=== PATIENT | male | born 1955 | race Caucasian/White ===

== ENCOUNTER 2019-07-10 14:32 | Inpatient (IN) | payer OTHER ==
[~2019-07-10] VITALS: Ht 190.5 cm; Wt 75.5 kg
[~2019-07-10 14:32] MED LIST: FENT25TP TOP; OXYC5 PO
[2019-07-10 15:28] LABS: BASOPHILS ABSOLUTE AUTO 0.08 K/mm3 (0.00-0.23); BASOPHILS PERCENT AUTO 1 % (0-2); EOSINOPHILS ABSOLUTE AUTO 0.68 K/mm3 (0.00-0.68); EOSINOPHILS PERCENT AUTO 9 % (0-6); Hematocrit 44.4 % (37.0-53.0); Hemoglobin 15.4 g/dL (13.5-17.5); IMMATURE GRAN ABSOLUTE AUTO 0.03 K/mm3 (0.00-0.10); IMMATURE GRAN PERCENT AUTO 0 % (0-1); LYMPHOCYTES ABSOLUTE AUTO 1.65 K/mm3 (0.84-5.20); LYMPHOCYTES PERCENT AUTO 21 % (21-46); MONOCYTES ABSOLUTE AUTO 0.46 K/mm3 (0.16-1.47); MONOCYTES PERCENT AUTO 6 % (4-13); Mean Corpuscular HGB 32.6 pg (26.0-34.0); Mean Corpuscular HGB Conc 34.7 g/dL (31.5-36.5); Mean Corpuscular Volume 94 fL (80-100); Mean Platelet Volume 10.3 fL (9.1-12.4); NEUTROPHILS ABSOLUTE AUTO 4.87 K/mm3 (1.96-9.15); NEUTROPHILS PERCENT AUTO 63 % (41-73); Platelet Count 208 K/mm3 (150-400); RDW Coefficient Variation 12.4 % (11.7-14.2); RDW Standard Deviation 42.7 fL (35.1-46.3); Red Blood Cell Count 4.73 M/mm3 (4.30-5.90); White Blood Cell Count 7.77 K/mm3 (4.00-11.30)
[2019-07-10 15:48] LABS: Alanine Aminotransfer (ALT/SGP 37 U/L (12-78); Albumin, Blood 3.8 g/dL (3.4-5.0); Albumin/Globulin Ratio 1.2 (0.8-1.8); Alk Phos 95 U/L (50-136); Anion Gap 9 mmol/L (6-16); Aspartate Aminotrans (AST/SGOT 23 U/L (12-37); Bilirubin, Total 0.9 mg/dL (0.1-1.0); Blood Urea Nitrogen 8 mg/dL (8-24); CO2, Blood 25 mmol/L (21-32); Calcium, Blood 9.2 mg/dL (8.5-10.1); Chloride, Blood 102 mmol/L (98-108); Creatinine, Blood 0.53 mg/dL (0.60-1.20); Globulin, Blood 3.2 g/dL (2.2-4.0); Glomerular Filtration Rate >60 (60-); Glucose, Blood 198 mg/dL (70-99); Potassium, Blood 3.8 mmol/L (3.5-5.5); Sodium, Blood 136 mmol/L (136-145); Troponin I 0.073 ng/mL (0.000-0.040)
[2019-07-10 17:00] LABS: International Normalized Ratio 0.96; Prothrombin Time Results 10.3 Sec (9.7-11.5)
[2019-07-10] MEDS ORDERED: MICROZIDE12.5 MG PO (17:28)
[2019-07-10] MEDS ORDERED: TAMS.4ER PO (17:28)
[2019-07-10] MEDS ORDERED: Cymbalta20 MG PO ×2 (17:28→19:32)
[2019-07-10 19:22] LABS: CHOL/HDL RATIO 4.9; Cholesterol 151 mg/dL (50-200); HDL Cholesterol 31 mg/dL (>39); LDL/HDL RATIO 3.4; Low Density Lipoprotein Chol 104 mg/dL (0-110); Triglycerides 78 mg/dL (30-160); Very Low Density Lipoprot Chol 15 mg/dL (6-32)
[2019-07-10] MEDS ORDERED: FLOMAX0.4 MG PO (19:31)
[2019-07-10] MEDS ORDERED: Prinivil10 MG PO (19:32)
[2019-07-10] MEDS ORDERED: METF500 PO (19:33)
[2019-07-10] MEDS ORDERED: Nortriptyline H10 MG PO (19:33)
[2019-07-11 00:12] LABS: CPK Creatine Kinase 214 U/L (39-308)
--- NOTE | 2019-07-11 06:32 | NUR ---
NO ACUTE CHANGES THOUGHOUT SHIFT. SEE [employer] FOR FULL ASSESMENT.
--- NOTE | 2019-07-11 08:10 | NUR ---
ASSUMPTION OF CARE RECEIVED REPORT FROM CARON CHUNG. PT RESTING COMFORTABLY IN BED. NO S/S OF DISTRESS. VS STABLE. PT DENIES ANY C/O CHEST PAIN/PRESSURE OR SOB. OPEN FOR ECHO TODAY. BED LOCKED & IN LOWEST POSTION, CALL ELIZALDE W/ IN REACH. WILL CONTINUE TO MONITOR.
[2019-07-11 08:48] LABS: Hematocrit 39.5 % (37.0-53.0); Hemoglobin 13.5 g/dL (13.5-17.5); Mean Corpuscular HGB 32.1 pg (26.0-34.0); Mean Corpuscular HGB Conc 34.2 g/dL (31.5-36.5); Mean Corpuscular Volume 94 fL (80-100); Mean Platelet Volume 10.9 fL (9.1-12.4); Platelet Count 210 K/mm3 (150-400); RDW Coefficient Variation 12.6 % (11.7-14.2); RDW Standard Deviation 43.5 fL (35.1-46.3); White Blood Cell Count 8.33 K/mm3 (4.00-11.30)
[2019-07-11 09:07] LABS: Anion Gap 7 mmol/L (6-16); Blood Urea Nitrogen 17 mg/dL (8-24); Bun/Creatinine Ratio 28.1 (12.0-20.0); CO2, Blood 26 mmol/L (21-32); Calcium, Blood 8.6 mg/dL (8.5-10.1); Chloride, Blood 104 mmol/L (98-108); Creatinine, Blood 0.61 mg/dL (0.60-1.20); Glomerular Filtration Rate >60 (60-); Glucose, Blood 184 mg/dL (70-99); Sodium, Blood 137 mmol/L (136-145)
[2019-07-11 09:10] LABS: Troponin I 0.388 ng/mL (0.000-0.040)
[2019-07-11 11:59] LABS: International Normalized Ratio 0.98; Prothrombin Time Results 10.5 Sec (9.7-11.5)
--- NOTE | 2019-07-11 12:40 | NUR ---
PT HAD ECHO COMPLETED, WHICH IS CONCERNING FOR THROMBUS. HEPARIN DRIP STARTED PER MD ORDER. PT'S WEIGHT 85KG, DRIP INFUSING @ 13UNITS/KG/HR. VERIFIED W/ SECOND RNAMERICA.
--- NOTE | 2019-07-11 17:03 | NUR ---
NOTIFIED BY LAB OF CRITICAL TROPONIN LEVEL 2.59 @ 3469. SPOKE W/ DR. BLOUNT VIA TELEPHONE @ 1703. TO ENTER ADDITIONAL TNI ORDERS. DR. BLOUNT STATES NO NEED TO CALL CARDIO W/ FUTURE TNI LEVELS. PLAN IS FOR ANGIOPLASTY TOMORROW.
--- NOTE | 2019-07-11 19:05 | NUR ---
SHIFT SUMMARY PT C/O CHEST PAIN 08/19 @ 1745; NOTED TO BE DIAPHORETIC & C/O SOME MILD SOB. DR. BLOUNT AT BEDSIDE; ORDERED STAT EKG & SUBLINGUAL NITRO. PT REPORTS 0/10 CHEST PAIN AFTER ADMINISTRATION OF NITRO X2. EKG DID SHOW CHANGES FROM PRIOR PER MD. DR. BLOUNT STATES THAT PLAN IS STILL FOR ANGIO TOMORROW, UNLESS PT DEVELOPS CHEST PAIN OR BECOMES UNSTABLE THROUGHOUT NIGHT. HEPARIN DRIP CONTINUES TO INFUSE @ 13UNITS/KG/HR. PT CURRENTLY RESTING IN BED IN NO DISTRESS. VS STABLE. PT DENIES ANY C/O CHEST PAIN OR SOB. REPORT GIVEN TO CARON SANDOVAL.
--- NOTE | 2019-07-11 20:09 | NUR ---
ASSUMED CARE APPROXIMATELY 1899; PT A&O; WATCHING TV; APPROXIMATELY 1944 C/O CHEST PAIN; PAIN 1 OF 10; HR ELEVATED TO 107; BP OF 112/83; NSR NOTED ON TELE; PAIN INCREASED TO 2 OF 10; C/O OF DIAPHORESIS; 2 NITRO GIVEN 5 MINUTES APART; MERCHANDISE DIRECTOR IN ROOM; PAIN RESOLVED; PT STATES IMPROVEMENT; BP AND HR CAME DOWN IN ACCORDANCE; 110/75 W/ HR OF 91; MADE NPO IN PREPARATION; CALL LIGHT IN REACH; BED IN LOWEST POSITION;
--- NOTE | 2019-07-12 00:47 | NUR ---
UPDATE PT A&O C/O JOINT PAIN AND CHEST PAIN; NITRO GIVEN X2; IMMEDIATE IMPROVEMENT NOTED AFTER 2ND; O2 SATS >93 ON RA; CALL LIGHT IN REACH; BED IN LOWEST POSITION; REPORT GIVEN TO CARON CHUNG
--- NOTE | 2019-07-12 00:49 | NUR ---
PATIENT C/O OF 2/10 CHEST PRESSURE, BP 132/92, HR >100. SL NTG GIVEN SBP DOWN TO 110-120, HR <100, PRESSURE DOWNN TO 1/10. SECOND NTG GIVEN AFTER 5 MINUTES WITH SBP 100 -110, HR IN 90'S PRESSURE RESOLVED. ALSO C/O 3/10 JOINT PAIN, MEDICATED WITH 25 MCG SUBLIMAZE IV. WILL CONTINUE TO MONITOR.
--- NOTE | 2019-07-12 04:55 | NUR ---
pain c/o NAUSEA AND SWEATING SBP 120, HR <100. NO CHEST PAIN, 2L O2 PLACED WITH SLIGHT RELIEF FOR NAUSEA, ZOFRAN 4 MG IV GIVEN RESOLVING NAUSEA. MAAME CONTINUE TO MONITOR UNTILL DR BLOUNT ARRIVES THIS AM.
[2019-07-12 05:24] LABS: BASOPHILS ABSOLUTE AUTO 0.09 K/mm3 (0.00-0.23); BASOPHILS PERCENT AUTO 1 % (0-2); EOSINOPHILS ABSOLUTE AUTO 0.94 K/mm3 (0.00-0.68); EOSINOPHILS PERCENT AUTO 9 % (0-6); Hematocrit 41.6 % (37.0-53.0); Hemoglobin 14.1 g/dL (13.5-17.5); IMMATURE GRAN ABSOLUTE AUTO 0.03 K/mm3 (0.00-0.10); IMMATURE GRAN PERCENT AUTO 0 % (0-1); LYMPHOCYTES ABSOLUTE AUTO 3.01 K/mm3 (0.84-5.20); LYMPHOCYTES PERCENT AUTO 30 % (21-46); MONOCYTES ABSOLUTE AUTO 0.56 K/mm3 (0.16-1.47); MONOCYTES PERCENT AUTO 6 % (4-13); Mean Corpuscular HGB 32.2 pg (26.0-34.0); Mean Corpuscular HGB Conc 33.9 g/dL (31.5-36.5); Mean Corpuscular Volume 95 fL (80-100); Mean Platelet Volume 10.8 fL (9.1-12.4); NEUTROPHILS ABSOLUTE AUTO 5.36 K/mm3 (1.96-9.15); NEUTROPHILS PERCENT AUTO 54 % (41-73); Platelet Count 221 K/mm3 (150-400); RDW Coefficient Variation 12.5 % (11.7-14.2); RDW Standard Deviation 43.7 fL (35.1-46.3); Red Blood Cell Count 4.38 M/mm3 (4.30-5.90); White Blood Cell Count 9.99 K/mm3 (4.00-11.30)
[2019-07-12 05:55] LABS: Anion Gap 9 mmol/L (6-16); Blood Urea Nitrogen 23 mg/dL (8-24); Bun/Creatinine Ratio 37.6 (12.0-20.0); CO2, Blood 23 mmol/L (21-32); Calcium, Blood 9.2 mg/dL (8.5-10.1); Chloride, Blood 102 mmol/L (98-108); Creatinine, Blood 0.61 mg/dL (0.60-1.20); Glomerular Filtration Rate >60 (60-); Glucose, Blood 201 mg/dL (70-99); Potassium, Blood 3.9 mmol/L (3.5-5.5); Sodium, Blood 134 mmol/L (136-145)
--- NOTE | 2019-07-12 13:02 | NUR ---
Spiritual care visit conducted. Patient is lying in bed and alert. Patient immediately tells me that he is going to have an angiogram today and then proceeds to tell me about his complicated medical history. Patient tells me his fears of being so high risk and how his family, friends and dio carry him through. We discuss patient's latter-day beliefs, his family history and his hopes. I listen empathically, reinforce helpful attitudes and practices and provide pastoral application counselor and prayer. Patient responds well and displays evidence of improved peace. I will continue to remain available to patient and family.
--- NOTE | 2019-07-12 13:25 | NUR ---
PT GONE FOR ANGIO PROCEDURE AT AUDIO NARRATOR AT THIS TIME, ACCOMPANIED BY [facility] AND DAUGHTER. PT DENIES ANY CHEST PAIN PRIOR TO TRANSFER. NO OTHER COMPLAINS.
--- NOTE | 2019-07-12 14:49 | NUR ---
Aditi Vázquez, a [employer] school of nursing director, was given permission by Jerzy Monte on 07/12/2019 to provide care for Jerzy Monte on 07/13/2019.
--- NOTE | 2019-07-12 14:50 | NUR ---
Patient gave student nurse permission to provide care on 07/13/19.
--- NOTE | 2019-07-12 19:50 | NUR ---
SHIFT SUMMARY: PT HAD ANGIO PROCEDURE DONE TODAY, ACCESS SITE ON RIGHT RADIAL AND IS WNL. PT TO CONTINUE HEPARIN DRIP, NO OCCLUSION FOUND WITH ANGIO, SOME CLOTS FOUND. HRR NSR ON 80'S NO CHEST PAIN FOR THE SHIFT. LUNGS CLEAR SATS ABOVE 90% ON 2L OF 02. BP SYSTOLIC ON THE 110'S AND 120'S. TR BAND IN PLACE ON RIGHT ARM WITH 1CC AIR LEFT. REPORT GIVEN TO ONCOMING SHIFT. TO CONTINUE TO MONITOR
[2019-07-13 05:43] LABS: BASOPHILS ABSOLUTE AUTO 0.09 K/mm3 (0.00-0.23); BASOPHILS PERCENT AUTO 1 % (0-2); EOSINOPHILS ABSOLUTE AUTO 0.97 K/mm3 (0.00-0.68); EOSINOPHILS PERCENT AUTO 11 % (0-6); Hematocrit 43.1 % (37.0-53.0); Hemoglobin 14.5 g/dL (13.5-17.5); IMMATURE GRAN ABSOLUTE AUTO 0.03 K/mm3 (0.00-0.10); IMMATURE GRAN PERCENT AUTO 0 % (0-1); LYMPHOCYTES ABSOLUTE AUTO 2.58 K/mm3 (0.84-5.20); LYMPHOCYTES PERCENT AUTO 29 % (21-46); MONOCYTES PERCENT AUTO 7 % (4-13); Mean Corpuscular HGB 32.7 pg (26.0-34.0); Mean Corpuscular HGB Conc 33.6 g/dL (31.5-36.5); Mean Corpuscular Volume 97 fL (80-100); Mean Platelet Volume 10.7 fL (9.1-12.4); NEUTROPHILS ABSOLUTE AUTO 4.72 K/mm3 (1.96-9.15); NEUTROPHILS PERCENT AUTO 53 % (41-73); Platelet Count 208 K/mm3 (150-400); RDW Coefficient Variation 12.7 % (11.7-14.2); RDW Standard Deviation 45.1 fL (35.1-46.3); Red Blood Cell Count 4.44 M/mm3 (4.30-5.90); White Blood Cell Count 8.99 K/mm3 (4.00-11.30)
[2019-07-13 05:59] LABS: Anion Gap 7 mmol/L (6-16); Blood Urea Nitrogen 29 mg/dL (8-24); Bun/Creatinine Ratio 37.4 (12.0-20.0); CO2, Blood 25 mmol/L (21-32); Calcium, Blood 8.7 mg/dL (8.5-10.1); Chloride, Blood 102 mmol/L (98-108); Creatinine, Blood 0.78 mg/dL (0.60-1.20); Glomerular Filtration Rate >60 (60-); Glucose, Blood 164 mg/dL (70-99); Potassium, Blood 4.1 mmol/L (3.5-5.5); Sodium, Blood 134 mmol/L (136-145)
--- NOTE | 2019-07-13 06:00 | NUR ---
SHIFT SUMAMRY. RECOVERY OF TR AND RT WRIST WNL ALL NOC W/ FREQ CHECKS POST AIR RELEASE = SEE SITE MANAGE REPORT. OCCLUSIVE DSG AT 2300 AND FREQ CHECK ALL NOC AND WNL ALL NOC. ARM BOARD AT ALL TIMES. REPORTS PER HX TRQANSIENT JOINT PAIN AND REQUESTS PAIN MED FOR BETTER SLEEP COMFORT. LT FOOT NUMB REPORTED THEN SUBSIDES . DENIES CP ALL NOC. SR ALL NOC. HEP GTT CONT. AWAKENED AT 0500 W/ WAVE OF NAUSEA AND VERY DIAPHORETIC. BP WNL AND NO RHYTHM CHANGE. ZOFRAQN GIVEN. REFUSED HS SNACK LAST NOC. NO CBG COVER. NO CHANGE IN RT WRIST. CIRC CHEC WNL. BBC NOTED REQUESTS 1L NC REPORTED IT MAKES HIM FEEL MORE AT EASE.
--- NOTE | 2019-07-13 16:51 | NUR ---
SHIFT SUMMARY: PT ALERT AND ORIENTED. PT CONTINUES ON HEPARIN DRIP TO START TONIGHT ONCE XARELTO IS STARTED. NO C/O CHEST PAIN FOR THE SHIFT, HRR NSR ON 90'S. LUNGS CLEAR WITH BASIALR CRACKLES BILAT. NO SOB/. PT SWITCHED TO MEDICAL STATUS WITH TELE ORDERED. PT STAYED IN BED MOST OF THE SHIFT, C/O WEAKNESS BUT MANAGED TO SIT UP AT THE SIDE OF THE BED MOST OF THE TIME. PT WAS ALSO C/O CONSTIPATION STOOL SOFTENER GIVEN FOLLOWED BY PRUNE JUICE, NO BM REPORTED YET. PT RESTING IN BED WITH CALL LIGHTS WITHIN REACH. WILL MONITOR. TO GIVE REPORT TO ONCOMING SHIFT.
[2019-07-14 04:06] LABS: BASOPHILS ABSOLUTE AUTO 0.09 K/mm3 (0.00-0.23); BASOPHILS PERCENT AUTO 1 % (0-2); EOSINOPHILS ABSOLUTE AUTO 0.81 K/mm3 (0.00-0.68); EOSINOPHILS PERCENT AUTO 11 % (0-6); Hematocrit 44.9 % (37.0-53.0); Hemoglobin 15.2 g/dL (13.5-17.5); IMMATURE GRAN ABSOLUTE AUTO 0.04 K/mm3 (0.00-0.10); IMMATURE GRAN PERCENT AUTO 1 % (0-1); LYMPHOCYTES ABSOLUTE AUTO 1.94 K/mm3 (0.84-5.20); LYMPHOCYTES PERCENT AUTO 26 % (21-46); MONOCYTES ABSOLUTE AUTO 0.59 K/mm3 (0.16-1.47); MONOCYTES PERCENT AUTO 8 % (4-13); Mean Corpuscular HGB 32.4 pg (26.0-34.0); Mean Corpuscular HGB Conc 33.9 g/dL (31.5-36.5); Mean Corpuscular Volume 96 fL (80-100); Mean Platelet Volume 10.6 fL (9.1-12.4); NEUTROPHILS ABSOLUTE AUTO 4.01 K/mm3 (1.96-9.15); NEUTROPHILS PERCENT AUTO 54 % (41-73); Platelet Count 212 K/mm3 (150-400); RDW Coefficient Variation 12.6 % (11.7-14.2); Red Blood Cell Count 4.69 M/mm3 (4.30-5.90); White Blood Cell Count 7.48 K/mm3 (4.00-11.30)
[2019-07-14 04:22] LABS: Anion Gap 5 mmol/L (6-16); Blood Urea Nitrogen 28 mg/dL (8-24); Bun/Creatinine Ratio 38.3 (12.0-20.0); CO2, Blood 30 mmol/L (21-32); Calcium, Blood 9.3 mg/dL (8.5-10.1); Chloride, Blood 100 mmol/L (98-108); Creatinine, Blood 0.73 mg/dL (0.60-1.20); Glomerular Filtration Rate >60 (60-); Glucose, Blood 176 mg/dL (70-99); Potassium, Blood 4.6 mmol/L (3.5-5.5); Sodium, Blood 135 mmol/L (136-145)
--- NOTE | 2019-07-14 06:00 | NUR ---
SHIFT SUMMARY. DENIES ACUTE PAIN REPORTS USUAL JOINT ACHES AND OCC SHARP PAIN . WEAKNESS W/ EXTREMITIES PER HX DUE TO DISORDER. USES URINAL. STOOD W/ NO ASSIST ONLY STAND BY, FOR SHOWER. AND DID NOT REQUIRE SHOWER CHAIR. REPORTS NO SOB W/ EXERTION.
--- NOTE | 2019-07-14 10:53 | NUR ---
ASSUMTION OF CARE. PT RESTING IN BED. A&Ox4; CALM AND COOPERATIVE WT CARE. PT RESTING IN BED. PT DENIES PAIN, CHEST PAIN/PRESSURE, SOB, NAUSEA AND DIZZINESS. LS DIM T/O CRACKLES TO BASES; PT RECEEIVING IV LASIX. VSS. NO OTHER ACUTE CHANGES NOTED. WILL CONTINUE TO MONITOR.
--- NOTE | 2019-07-14 18:22 | NUR ---
SHIFT SUMMARY PT REPORTS PAIN IN BILATERAL KNEE AND FEET; MEDICATED x1 WTIH FENTNYL WITH POSITIVE RESULTS. A&Ox4; CALM AND COOPERATIVE WITH CARE. 1 PERSON ASSIT. NO DISTRESS NOTED T/O SHIFT. VSS. NO OTHER ACUTE CHANGES NOTED. WILL CONTINUE TO MONITOR UNTIL REPORT GIVEN TO ONCOMING RN
[2019-07-15 04:18] LABS: Anion Gap 6 mmol/L (6-16); Blood Urea Nitrogen 33 mg/dL (8-24); Bun/Creatinine Ratio 40.1 (12.0-20.0); CO2, Blood 30 mmol/L (21-32); Calcium, Blood 8.9 mg/dL (8.5-10.1); Chloride, Blood 101 mmol/L (98-108); Creatinine, Blood 0.82 mg/dL (0.60-1.20); Glomerular Filtration Rate >60 (60-); Glucose, Blood 170 mg/dL (70-99); Potassium, Blood 4.2 mmol/L (3.5-5.5); Sodium, Blood 137 mmol/L (136-145)
--- NOTE | 2019-07-15 06:14 | NUR ---
NO ACUTE CHANGES THIS SHIFT, PERIODS OF APNEA NOTED DURINGHOURS OF SLEEP, NO DISTRESS NOTED.
--- NOTE | 2019-07-15 07:28 | NUR ---
Spoke with Dr. Collins regarding the plan of care for the pt this morning. States he has made the decision to be a DNR. The pt confirms this with me as well. Pt verbalized understanding of plan to remain in the hospital one more day for IV lasix. He has no complaints or voiced needs at this time.
--- NOTE | 2019-07-15 10:57 | NUR ---
Pt states that he does not need the Miralax as he was able to have a bowel movement this morning.
[2019-07-15 11:10] LABS: LYME IGG/IGM AB <0.91 ISR (0.00-0.90)
--- NOTE | 2019-07-15 12:34 | NUR ---
Mau is sitting up, eating his lunch while dangling on the side of the bed. He appears to be tolerating this very well. States was able to walk to the bathroom and had a BM today. Denies any needs/pain/discomfort at this time.
--- NOTE | 2019-07-15 17:53 | NUR ---
Telephone report give to Beronica Mcbride at this time. Anticipate transfer to [facility] soon.
--- NOTE | 2019-07-15 19:02 | NUR ---
pt arrived to floor from pcu and settled in to bed. oriented to room. cane within reach for ambulation. reports he raises the bed to get to standing position. report given to oncoming shift.
--- NOTE | 2019-07-16 04:21 | NUR ---
SHIFT SUMMARY ASSUMED CARE OF PT AT 1900. PT IS A/O X4, DENIES N/T IN EXTREMITIES AT THIS TIME. HEART SOUNDS REGULAR, TELE SHOWS SINUS AT 77, DENIES CP AT THIS TIME. LUNG SOUNDS CLEAR, DENIES SOB AT THIS TIME, PT IS ASSUMED TO HAVE SLEEP APNEA, WEARS 2L O2 AT NIGHT, SLEEP STUDY IS TO BE DONE OUT PATIENTLY. 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 PT IS INDEPENDENT IN ROOM. ANGIO SITE SOFT, NOT DISCOLORED AND PT STATES THERE IS NO PAIN. PT SLEPT T/O THE NIGHT WITHOUT ANY EVENTS. PT IS PLANNED TO GO HOME TO HIS HOUSE TODAY. CALL LIGHT IN REACH, BED IN LOWEST POSITION, WILL CONTINUE TO MONITOR UNTIL DAYSHIFT NURSE ARRIVES.
[2019-07-16 04:34] LABS: Anion Gap 7 mmol/L (6-16); Blood Urea Nitrogen 34 mg/dL (8-24); CO2, Blood 24 mmol/L (21-32); Calcium, Blood 8.9 mg/dL (8.5-10.1); Chloride, Blood 104 mmol/L (98-108); Creatinine, Blood 0.71 mg/dL (0.60-1.20); Glomerular Filtration Rate >60 (60-); Glucose, Blood 198 mg/dL (70-99); Potassium, Blood 4.3 mmol/L (3.5-5.5); Sodium, Blood 135 mmol/L (136-145)
--- NOTE | 2019-07-16 07:54 | NUR ---
REPORT RECEIVED FROM DAY STAFF, a+o, dc orders expected, chronic desease wasting, cbg checked 203, ls clear, weak limbs, pulse strong, rom full, perrl, call light in reach, bed low, saline locked, pain treated
[2019-07-16] MEDS ORDERED: ATOR20 PO (12:08)
[2019-07-16] MEDS ORDERED: Cymbalta20 MG PO (12:09)
[2019-07-16] MEDS ORDERED: Lasix20 MG PO (12:10)
[2019-07-16] MEDS ORDERED: METO50ER PO (12:11)
[2019-07-16] MEDS ORDERED: XARELTO20 MG PO (12:12)
[2019-07-16] MEDS ORDERED: ENTRESTO 24 MG1 EACH PO (12:13)
[2019-07-16] MEDS ORDERED: SPIR25 PO (12:15)
--- NOTE | 2019-07-16 13:09 | NUR ---
REVIEWED MEDICATION, DISCHARGE ORDERS, AND APPOINTMENTS WITH PT, HE INDICATED UNDERSTANDING OF INFORMATION CONVEYED, AGREED TO READ THE PRINTED MATERIAL R/MEDICATIONS AND DIAGNOSIS, DROVE PT IN WC DOWN TO CAR, IN GOOD SPIRITS, STOOD WITH ASSIST, USED CANE, TOOK BELONGINGS WITH HIM, REMOVED IV.
[2019-07-16 20:06] LABS: IGG P18 AB. Absent (.); IGG P23 AB. Absent (.); IGG P28 AB. Absent (.); IGG P30 AB. Absent (.); IGG P39 AB. Absent (.); IGG P41 AB. Absent (.); IGG P45 AB. Absent (.); IGG P58 AB. Absent (.); IGG P66 AB. Absent (.); IGG P93 AB. Absent (.); IGM P23 AB. Absent (.); IGM P39 AB. Absent (.); IGM P41 AB. Absent (.); LYME IGG WB INTERP. Negative (.); LYME IGM WB INTERP. Negative (.)
== END 2019-07-16 13:07 | disposition home or self-care (01) | DRG 280 ==
LOC: ER 14:32 → PCU 18:37 → MEDS 07-15 18:25
PROVIDERS: Emergency Medicine; Internal Medicine; Internal Medicine Cardiovascular Disease; Physician Assistant; ADMIT Internal Medicine
PROC: B211YZZ Fluoroscopy of Multiple Coronary Arteries using Other Contrast (ICD-10-PCS; principal; 2019-07-12)
DX: I21.4 Non-ST elevation (NSTEMI) myocardial infarction (principal); I50.21 Acute systolic (congestive) heart failure; A69.20 Lyme disease, unspecified; N40.0 Benign prostatic hyperplasia without lower urinary tract symptoms; F32.9 Major depressive disorder, single episode, unspecified; E11.9 Type 2 diabetes mellitus without complications; I16.0 Hypertensive urgency; I11.0 Hypertensive heart disease with heart failure; E78.5 Hyperlipidemia, unspecified; G47.33 Obstructive sleep apnea (adult) (pediatric); I25.10 Atherosclerotic heart disease of native coronary artery without angina pectoris; I27.20 Pulmonary hypertension, unspecified; Z66 Do not resuscitate; F17.210 Nicotine dependence, cigarettes, uncomplicated; Z79.84 Long term (current) use of oral hypoglycemic drugs; Z91.14 Patient's other noncompliance with medication regimen
CPT/HCPCS: 36415; 71046; 80048; 80053; 80061; 82550; 82947; 83036; 83880; 84145; 84443; 84484; 85025; 85027; 85610; 85651; 85730; 86140; 86617; 86618; 87040; 90686; 93005; 93010; 93454; 94640; 94760; 96365; 96366; 99152; 99153; 99285-25; A9270; A9270-GY; C1769; C1894; C8929; G0008; J1644; J1650; J1940; J2250; J2405; J3010; J7030; Q9957; Q9967

== ENCOUNTER 2020-05-15 08:42 | Inpatient (IN) | payer OTHER ==
[~2020-05-15] VITALS: Ht 190.5 cm; Wt 100.8 kg
[~2020-05-15 08:42] MED LIST changes: +ALLERCLEAR10 MG PO; +ATOR20 PO; +CLOP75 PO; +Cymbalta20 MG PO; +ENTRESTO 24 MG1 EACH PO; +FAMO20 PO; +FLOMAX0.4 MG PO; +HYDR1TAB94 PO; +Lasix20 MG PO; +METF500 PO; +METO50ER PO; +MICROZIDE12.5 MG PO; +NORTRIPTYLINE H50 MG PO; +Nortriptyline H10 MG PO; +Prinivil10 MG PO; +SPIR25 PO; +TAMS.4ER PO; +TIOT18 INH; +XARELTO2.5 M1 PO; +XARELTO20 MG PO
[2020-05-15 09:41] LABS: BASOPHILS PERCENT AUTO 1 % (0-2); EOSINOPHILS ABSOLUTE AUTO 0.61 K/mm3 (0.00-0.68); EOSINOPHILS PERCENT AUTO 5 % (0-6); Hematocrit 43.6 % (37.0-53.0); Hemoglobin 14.7 g/dL (13.5-17.5); IMMATURE GRAN ABSOLUTE AUTO 0.05 K/mm3 (0.00-0.10); IMMATURE GRAN PERCENT AUTO 0 % (0-1); LYMPHOCYTES PERCENT AUTO 17 % (21-46); MONOCYTES ABSOLUTE AUTO 0.68 K/mm3 (0.16-1.47); MONOCYTES PERCENT AUTO 6 % (4-13); Mean Corpuscular HGB 30.6 pg (26.0-34.0); Mean Corpuscular HGB Conc 33.7 g/dL (31.5-36.5); Mean Corpuscular Volume 91 fL (80-100); Mean Platelet Volume 10.3 fL (9.1-12.4); NEUTROPHILS ABSOLUTE AUTO 8.87 K/mm3 (1.96-9.15); NEUTROPHILS PERCENT AUTO 72 % (41-73); Platelet Count 282 K/mm3 (150-400); RDW Coefficient Variation 12.1 % (11.7-14.2); RDW Standard Deviation 40.3 fL (35.1-46.3); White Blood Cell Count 12.41 K/mm3 (4.00-11.30)
[2020-05-15 10:09] LABS: Alanine Aminotransfer (ALT/SGP 28 U/L (12-78); Albumin, Blood 3.5 g/dL (3.4-5.0); Albumin/Globulin Ratio 1.1 (0.8-1.8); Alk Phos 108 U/L (50-136); Anion Gap 9 mmol/L (6-16); Aspartate Aminotrans (AST/SGOT 70 U/L (12-37); Bilirubin, Total 0.9 mg/dL (0.1-1.0); Blood Urea Nitrogen 12 mg/dL (8-24); Bun/Creatinine Ratio 25.8 (12.0-20.0); CO2, Blood 22 mmol/L (21-32); Chloride, Blood 106 mmol/L (98-108); Creatinine, Blood 0.47 mg/dL (0.60-1.20); Globulin, Blood 3.3 g/dL (2.2-4.0); Glomerular Filtration Rate >60 (60-); Glucose, Blood 324 mg/dL (70-99); Potassium, Blood 3.6 mmol/L (3.5-5.5); Sodium, Blood 137 mmol/L (136-145); Total Protein, Blood 6.8 g/dL (6.4-8.2)
[2020-05-15 10:49] LABS: Influenza A, PCR Negative (NEGATIVE); Influenza B, PCR Negative (NEGATIVE); Resp Syncytial Virus, PCR Negative (NEGATIVE); SARS-Cov-2 (COVID-19) PCR, MMC Negative (NEGATIVE)
[2020-05-15 11:12] LABS: International Normalized Ratio 0.97; Prothrombin Time Results 10.4 Sec (9.7-11.5)
[2020-05-15 13:05] LABS: CHOL/HDL RATIO 4.8; Cholesterol 162 mg/dL (50-200); HDL Cholesterol 34 mg/dL (>39); LDL/HDL RATIO 3.2; Low Density Lipoprotein Chol 110 mg/dL (0-110); Triglycerides 89 mg/dL (30-160); Very Low Density Lipoprot Chol 17 mg/dL (6-32)
--- NOTE | 2020-05-15 14:46 | NUR ---
pt for care [facility] STUDENT NURSE RECIEVED PERMISSION TO PROVIDE CARE
--- NOTE | 2020-05-15 17:30 | NUR ---
PT ARRIVED FROM HEART CENTER BACK TO PCU 15. TR BAND IN PLACE TO RIGHT RADIAL, GAUZE DRESSING WITH MARKED BLOODY DRAINAGE NOTED TO LEFT AC FROM RIGHT HEART CATH. NO CHANGES TO DRESSING NOTED. VITALS ARE STABLE. PT CONTINUES TO REPORT 3/10 CHEST PAIN/PRESSURE. CALLED DR DAVENPORT AND CLARIFIED WHEN TO START HEPARIN GTT. HEPARIN GTT TO START AFTER TR BAND IS REMOVED.
--- NOTE | 2020-05-15 18:45 | NUR ---
SHIFT SUMMARY PT ADMITTED THIS AFTERNOON FROM ER TO PCU 15. PT WENT TO HEART CENTER FOR RIGHT AND LEFT HEART CATH. TR BAND IN PLACE W/ 11ML AIR AND DEFLATION TO START AT 1900. RIGHT HEART CATH DRESSING TO RIGHT AC HAS OLD DRAINAGE, NO CHANGES AND IS INTACT. VITALS HAVE REMAINED STABLE. PT CONTINUES TO REPORT "LOW 4" FOR CHEST PAIN/PRESSURE AND OCCASSIONAL SHORT EPISODES OF DYSPNEA. TELEMETERY SHOWS PT TO BE IN SINUS TACH. SHIFT HANDOFF AND SITE VERIFICATION DONE WITH CARON DELAROSA.
--- NOTE | 2020-05-15 19:15 | NUR ---
REMOVED 2ML FROM TR BAND - NO COMPLICATIONS/SIGNS OF BLEEDING. VSS.
--- NOTE | 2020-05-15 20:00 | NUR ---
REMOVED 2ML FROM TR BAND - WITHOUT COMPLICATION. NO SIGNS OF BLEEDING/SWELLING. VSS. PT DID C/O MINOR CHEST PAIN - MEDICATED WITH MORPHINE - WILL CONTINUE TO MONITOR.
--- NOTE | 2020-05-15 20:25 | NUR ---
REMOVED 2ML FROM TR BAND - NO COMPLICATIONS. WIHTOUT S/S OF BLEEDING/SWELLING/PAIN. WILL CONTINUE TO MONITOR.
--- NOTE | 2020-05-15 20:57 | NUR ---
2ml removed from tr band - no signs of bleeding or swelling. vss.
--- NOTE | 2020-05-15 21:41 | NUR ---
3ml removed from tr band - completely deflated. no s/s of bleeding/swelling. vss. starting hep gtt per md order.
[2020-05-16 04:25] LABS: BASOPHILS ABSOLUTE AUTO 0.09 K/mm3 (0.00-0.23); BASOPHILS PERCENT AUTO 1 % (0-2); EOSINOPHILS ABSOLUTE AUTO 1.03 K/mm3 (0.00-0.68); EOSINOPHILS PERCENT AUTO 9 % (0-6); Hematocrit 37.8 % (37.0-53.0); Hemoglobin 12.9 g/dL (13.5-17.5); IMMATURE GRAN ABSOLUTE AUTO 0.04 K/mm3 (0.00-0.10); IMMATURE GRAN PERCENT AUTO 0 % (0-1); LYMPHOCYTES ABSOLUTE AUTO 2.72 K/mm3 (0.84-5.20); LYMPHOCYTES PERCENT AUTO 23 % (21-46); MONOCYTES ABSOLUTE AUTO 0.75 K/mm3 (0.16-1.47); MONOCYTES PERCENT AUTO 6 % (4-13); Mean Corpuscular HGB 31.2 pg (26.0-34.0); Mean Corpuscular HGB Conc 34.1 g/dL (31.5-36.5); Mean Corpuscular Volume 92 fL (80-100); Mean Platelet Volume 10.2 fL (9.1-12.4); NEUTROPHILS ABSOLUTE AUTO 7.19 K/mm3 (1.96-9.15); NEUTROPHILS PERCENT AUTO 61 % (41-73); Platelet Count 227 K/mm3 (150-400); RDW Coefficient Variation 12.5 % (11.7-14.2); RDW Standard Deviation 41.2 fL (35.1-46.3); Red Blood Cell Count 4.13 M/mm3 (4.30-5.90); White Blood Cell Count 11.82 K/mm3 (4.00-11.30)
[2020-05-16 04:34] LABS: Alanine Aminotransfer (ALT/SGP 32 U/L (12-78); Albumin, Blood 3.1 g/dL (3.4-5.0); Albumin/Globulin Ratio 1.1 (0.8-1.8); Alk Phos 89 U/L (50-136); Anion Gap 6 mmol/L (6-16); Aspartate Aminotrans (AST/SGOT 170 U/L (12-37); Bilirubin, Total 0.6 mg/dL (0.1-1.0); Blood Urea Nitrogen 17 mg/dL (8-24); Bun/Creatinine Ratio 34.1 (12.0-20.0); CO2, Blood 23 mmol/L (21-32); Calcium, Blood 8.5 mg/dL (8.5-10.1); Chloride, Blood 107 mmol/L (98-108); Globulin, Blood 2.9 g/dL (2.2-4.0); Glomerular Filtration Rate >60 (60-); Glucose, Blood 230 mg/dL (70-99); Magnesium, Blood 1.9 mg/dL (1.6-2.4); Potassium, Blood 4.1 mmol/L (3.5-5.5); Sodium, Blood 136 mmol/L (136-145)
--- NOTE | 2020-05-16 06:22 | NUR ---
SHIFT SUMMARY PT RESTED WELL THROUGH NIGHT. ALERT AND ORIENTED - ABLE TO MAKE NEEDS KNOWN. TELE SINUS TACHY. SATS >90% ON ROOM AIR. ATTEMPTED TO WEAR CPAP AT NIGHT - PT DID NOT LIKE WEARING MASK. VOIDING TO URINAL. NO BM. TR BAND OFF - NO COMPLICATIONS. HEP GTT RUNNING AND INCREASED FOR RECENT SUBTHERAPEUTIC PT. MELATONIN GIVEN TO HELP PT GET RESTFUL SLEEP. VSS. CALL LIGHT WITHIN REACH, BED IN LOWEST POSITION. WILL CONTINUE TO MONITOR.
--- NOTE | 2020-05-16 12:47 | NUR ---
Spiritual care visit conducted. Patient tells me about his medical issues and the plan of care. 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 I normalize patient's struggles, explore sources of meaning and value and provide therapeutic listening, pastoral genetic counsellor and prayer. Patient responds well and shows sign of an elevated mood. I will continue to work with patient on the emotional/spiritual/relational aspects of his inner health.
--- NOTE | 2020-05-16 16:28 | NUR ---
REASSESSMENT PT IN BED RESTING, REPORTED THAT HE DIDN'T SLEEP WELL LAST NOC. DENIES CHEST PAIN THIS AFTERNOON. RIGHT RADIAL SITE C/D/I, NO HEMATOMA. TELEMETERY CONTINUES AT SINUS TACH. NO CHANGES TO HEPARIN GTT, CONTINUES PER PHARMACY DOSING.
--- NOTE | 2020-05-16 17:58 | NUR ---
SHIFT SUMMARY PT IS ALERT AND ORIENTEDx4. THIS AFTERNOON PT REPORTS THAT HE IS CHESTPAIN FREE. TELEMETERY SHOWS PT TO BE IN SINUS TACH WITH RATES 100'S-110'S. RIGHT RADIAL SITE C/D/I, NO HEMATOMA NOTED. HEPARIN GTT CONTINUES TO INFUSE PER PHARMACY DOSING. VITALS HAVE REMAINED STABLE.
[2020-05-17 09:03] LABS: BASOPHILS ABSOLUTE AUTO 0.06 K/mm3 (0.00-0.23); BASOPHILS PERCENT AUTO 1 % (0-2); EOSINOPHILS ABSOLUTE AUTO 1.17 K/mm3 (0.00-0.68); EOSINOPHILS PERCENT AUTO 18 % (0-6); Hematocrit 35.3 % (37.0-53.0); IMMATURE GRAN ABSOLUTE AUTO 0.02 K/mm3 (0.00-0.10); IMMATURE GRAN PERCENT AUTO 0 % (0-1); LYMPHOCYTES ABSOLUTE AUTO 1.38 K/mm3 (0.84-5.20); LYMPHOCYTES PERCENT AUTO 21 % (21-46); MONOCYTES ABSOLUTE AUTO 0.44 K/mm3 (0.16-1.47); MONOCYTES PERCENT AUTO 7 % (4-13); Mean Corpuscular HGB 31.1 pg (26.0-34.0); Mean Corpuscular Volume 92 fL (80-100); Mean Platelet Volume 10.2 fL (9.1-12.4); NEUTROPHILS ABSOLUTE AUTO 3.48 K/mm3 (1.96-9.15); NEUTROPHILS PERCENT AUTO 53 % (41-73); Platelet Count 181 K/mm3 (150-400); RDW Coefficient Variation 12.5 % (11.7-14.2); RDW Standard Deviation 41.6 fL (35.1-46.3); Red Blood Cell Count 3.86 M/mm3 (4.30-5.90); White Blood Cell Count 6.55 K/mm3 (4.00-11.30)
[2020-05-17 09:18] LABS: Anion Gap 7 mmol/L (6-16); Blood Urea Nitrogen 17 mg/dL (8-24); Bun/Creatinine Ratio 35.3 (12.0-20.0); CO2, Blood 25 mmol/L (21-32); Calcium, Blood 8.1 mg/dL (8.5-10.1); Chloride, Blood 103 mmol/L (98-108); Creatinine, Blood 0.48 mg/dL (0.60-1.20); Glomerular Filtration Rate >60 (60-); Glucose, Blood 286 mg/dL (70-99); Potassium, Blood 3.6 mmol/L (3.5-5.5); Sodium, Blood 135 mmol/L (136-145)
--- NOTE | 2020-05-17 16:43 | NUR ---
PT SUMMARY: NO ACUTE CHANGE FOR THE SHIFT. PT REMAINED ALERT AND ORIENTED. VITALS HRR SR/ST 90-120'S, NO REPORTED VTACH EPISODES, DENIES CHEST PAIN, BP SYSTOLIC 110'S, SATS ABOVE 94% ON RA, AFEBRILE. PT WORKED WITH THERAPY TODAY WAS ABLE TO AMBULATE WITH WALKER AND GAIT BELT IN THE ROOM. PT REMAINS ON HEPARIN GTT AT 17U/KG/HR. PT FOR POSSIBLE DISCHARGE ON 05/18 OR 05/19 AWAITING FOR ZOLL VEST TO GET DELIVERED. NO OTHER ISSUES ENCOUNTERED FOR THE SHIFT, PT STAYED IN BED MOST OF THE SHIFT, USES URINAL FOR VOIDING. CALLS APPROPRIATELY. CALL LIGHTS IN REACH. WILL MONITOR
[2020-05-18 04:08] LABS: BASOPHILS ABSOLUTE AUTO 0.05 K/mm3 (0.00-0.23); BASOPHILS PERCENT AUTO 1 % (0-2); EOSINOPHILS ABSOLUTE AUTO 1.18 K/mm3 (0.00-0.68); EOSINOPHILS PERCENT AUTO 16 % (0-6); Hemoglobin 12.5 g/dL (13.5-17.5); IMMATURE GRAN ABSOLUTE AUTO 0.04 K/mm3 (0.00-0.10); IMMATURE GRAN PERCENT AUTO 1 % (0-1); LYMPHOCYTES ABSOLUTE AUTO 1.99 K/mm3 (0.84-5.20); LYMPHOCYTES PERCENT AUTO 26 % (21-46); MONOCYTES PERCENT AUTO 8 % (4-13); Mean Corpuscular HGB 31.6 pg (26.0-34.0); Mean Corpuscular HGB Conc 34.7 g/dL (31.5-36.5); Mean Corpuscular Volume 91 fL (80-100); NEUTROPHILS PERCENT AUTO 49 % (41-73); Platelet Count 195 K/mm3 (150-400); RDW Coefficient Variation 12.4 % (11.7-14.2); RDW Standard Deviation 40.7 fL (35.1-46.3); Red Blood Cell Count 3.96 M/mm3 (4.30-5.90); White Blood Cell Count 7.56 K/mm3 (4.00-11.30)
[2020-05-18 04:23] LABS: Anion Gap 7 mmol/L (6-16); Blood Urea Nitrogen 19 mg/dL (8-24); Bun/Creatinine Ratio 31.5 (12.0-20.0); CO2, Blood 26 mmol/L (21-32); Calcium, Blood 8.4 mg/dL (8.5-10.1); Chloride, Blood 104 mmol/L (98-108); Glomerular Filtration Rate >60 (60-); Glucose, Blood 222 mg/dL (70-99); Potassium, Blood 3.8 mmol/L (3.5-5.5); Sodium, Blood 137 mmol/L (136-145)
--- NOTE | 2020-05-18 05:38 | NUR ---
SHIFT SUMMARY NO ACUTE CHANGES THIS SHIFT. PT A&OX4. SP02>92% ON RA. PT WORE CPAP WHILE SLEEPING. TELEMETRY READ SR-ST, HR 90'S-120'S. PT DENIES CP/PRESSURE. HEPARIN INFUSING PER EMAR. PT SLEPT MOST OF NIGHT. CALL LIGHT IN REACH. WILL GIVE REPORT AT END OF SHIFT TO ONCOMING NURSE.
--- NOTE | 2020-05-18 08:06 | NUR ---
Pt gave permission for RN student Olivia Garibay to provide care on 05/18/2020.
--- NOTE | 2020-05-18 08:35 | NUR ---
Pt is lying in bed and is cooperative but at times irritable, pt states "I had a rought night with no sleep". Upon entering the room pts bed in raised, he states "it helps me sit up". Pt asks to keep bed in raised postion. BP has been in 80's, notified and some medications held. Slight edema in left lower extremity. Tingling in left lower foot.
--- NOTE | 2020-05-18 13:30 | NUR ---
PT HAS BEEN CARED FOR BY STUDENT NURSE TODAY, AGREE WITH ASSESSMENT, PT DENIES ANY COMPLAINTS, HAS BED UP IN AIR SO HE CAN STAND EASIER, ADVISED AGAINST THIS, BUT INSISTANT IT REMAIN THERE. HE WAS ABLE TO SLEEP THIS AM, AND STATES HE FEELS BETTER, CALL LIGHT IN REACH.
--- NOTE | 2020-05-18 17:45 | NUR ---
PT SITTING UP ON THE SIDE OF THE BED, WORKED WITH THERAPY TODAY, IN BETTER SPIRITS THAN THIS AM. NO ACUT CHANGES THIS SHIFT. CALL LIGHT IN REACH.
--- NOTE | 2020-05-19 06:50 | NUR ---
SHIFT SUMMARY PT A&OX4. SP02>92% ON RA. TELEMETRY READ SR-ST, HR 90'S-120'S. SOFT BP. PT DENIES CP/PRESSURE BUT STATED HE FELT SOME PALPATIONS DURING THE NIGHT. DESCRIBED THEM "FLUTTERS" AND STATED IT MADE HIM SOB MOMENTARILY. TELEMETRY SHOWED NO CHANGES DURING THIS EVENT. PT USED URINAL AT BEDSIDE. PT SLEPT MOST OF NIGHT. CALL LIGHT IN REACH. WILL GIVE REPORT TO ONCOMING NURSE.
--- NOTE | 2020-05-19 08:00 | NUR ---
PT LAYING IN BED AWAKE A/OX3, IN BETTER MOOD THAN YESTERDAY. LUNGS CLEAR HRR, NO EDEMA NOTED, PPP+1, CAP REFILL< 3SEC, VS STABLE, AFEBRILE, IV SITE TO LFA CLEAR AND PATENT, BTX4, ABD FLAT SOFT NONTENDER, VOIDS WITHOUT DIFF, SKIN C/W/D, MAEW, DUKE, CALL LIGHT IN REACH.
[2020-05-19 09:10] LABS: BASOPHILS ABSOLUTE AUTO 0.05 K/mm3 (0.00-0.23); BASOPHILS PERCENT AUTO 1 % (0-2); EOSINOPHILS ABSOLUTE AUTO 1.12 K/mm3 (0.00-0.68); EOSINOPHILS PERCENT AUTO 18 % (0-6); Hematocrit 36.6 % (37.0-53.0); Hemoglobin 12.3 g/dL (13.5-17.5); IMMATURE GRAN ABSOLUTE AUTO 0.03 K/mm3 (0.00-0.10); IMMATURE GRAN PERCENT AUTO 1 % (0-1); LYMPHOCYTES PERCENT AUTO 19 % (21-46); MONOCYTES PERCENT AUTO 8 % (4-13); Mean Corpuscular HGB 31.5 pg (26.0-34.0); Mean Corpuscular HGB Conc 33.6 g/dL (31.5-36.5); Mean Corpuscular Volume 94 fL (80-100); Mean Platelet Volume 10.1 fL (9.1-12.4); NEUTROPHILS ABSOLUTE AUTO 3.28 K/mm3 (1.96-9.15); NEUTROPHILS PERCENT AUTO 53 % (41-73); Platelet Count 198 K/mm3 (150-400); RDW Coefficient Variation 12.6 % (11.7-14.2); RDW Standard Deviation 43.2 fL (35.1-46.3); Red Blood Cell Count 3.91 M/mm3 (4.30-5.90); White Blood Cell Count 6.18 K/mm3 (4.00-11.30)
[2020-05-19 09:36] LABS: Anion Gap 7 mmol/L (6-16); Blood Urea Nitrogen 18 mg/dL (8-24); Bun/Creatinine Ratio 35.9 (12.0-20.0); CO2, Blood 23 mmol/L (21-32); Calcium, Blood 8.7 mg/dL (8.5-10.1); Chloride, Blood 107 mmol/L (98-108); Glomerular Filtration Rate >60 (60-); Glucose, Blood 274 mg/dL (70-99); Potassium, Blood 4.4 mmol/L (3.5-5.5); Sodium, Blood 137 mmol/L (136-145)
[2020-05-19] MEDS ORDERED: TORSE20 PO (12:00)
[2020-05-19] MEDS ORDERED: Imdur60 MG PO (12:03)
[2020-05-19] MEDS ORDERED: MIRALAX17 GM PO (12:05)
[2020-05-19] MEDS ORDERED: LOSA50 PO (12:05)
[2020-05-19] MEDS ORDERED: XARELTO20 MG PO (12:07)
--- NOTE | 2020-05-19 18:14 | NUR ---
PT HAS BEEN DISCHARGED TO HOME, HE WAS FITTED FOR HIS LIFE VEST, WENT OVER DISCHARGE INSTRUCTION WITH HIM, HE VERBALIZED UNDERSTANDING, NEW SCRIPTS WERE CALLED IN, HE HAS A HARD SCRIPT FOR A FRONT WHEELED WALKER, THIS WAS GIVEN TO HIM, IV REMOVED INTACT, PT STATES HE HAS HIS CAR HERE, AND WILL BE DRIVING HIMSELF HOME, HE WAS ADVISED AGAINST THIS, HE IS INSISTANT, STATES IF HE CAN'T DRIVE WITH IT HE WONT WEAR IT, DR. TOLEDO WAS CALLED, HE SAID WE CAN'T STOP HIM. CHARGE NURSE ALSO SPOKE TO HIM. GETTING DRESSED AT THIS TIME, WILL CALL WHEN READY FOR A WHEELCHAIR RIDE OUT. CALL LIGHT IN REACH.
--- NOTE | 2020-05-19 18:44 | NUR ---
Pt states that he planned to drive himself home. States "I have to drive myself, I don't have anyone who can help me." Pt states that if he is not allowed to drive himself with the life vest on he will just take it off. Educated Pt about the risks of v-tach and non-life sustaining rhythms and the roll of the life vest. Informed him that taking it off does not make driving safer. Informed him that he should not drive until he is cleared by cardiology. Pt states he plans to drive anyway because "I don't have the resources not to drive". Encouraged patient to wear the life vest as ordered and to hook puller if he starts to have any symptoms of heart palpitations, dizziness, lightheadedness, sob or chest pain. Pt verblaized understanding and stated "of course, I don't want to hurt anyone!". Pt got dressed and left via w/c with PINMAKER. Stable at time of discharge.
--- NOTE | 2020-05-19 18:45 | NUR ---
pt left via wheelchair with bible worker in attendence.
== END 2020-05-19 18:38 | disposition home or self-care (01) | DRG 281 ==
LOC: ER 08:42 → PCU 13:31
PROVIDERS: Emergency Medicine; Family Medicine; Nurse Practitioner Acute Care; ADMIT Internal Medicine
PROC: 4A023N8 Measurement of Cardiac Sampling and Pressure, Bilateral, Percutaneous Approach (ICD-10-PCS; principal; 2020-05-15)
PROC: B2111ZZ Fluoroscopy of Multiple Coronary Arteries using Low Osmolar Contrast (ICD-10-PCS; 2020-05-15)
DX: I21.4 Non-ST elevation (NSTEMI) myocardial infarction (principal); I51.81 Takotsubo syndrome; I42.0 Dilated cardiomyopathy; I50.22 Chronic systolic (congestive) heart failure; I47.2 Ventricular tachycardia; H35.30 Unspecified macular degeneration; Z79.84 Long term (current) use of oral hypoglycemic drugs; F17.210 Nicotine dependence, cigarettes, uncomplicated; I25.10 Atherosclerotic heart disease of native coronary artery without angina pectoris; G47.33 Obstructive sleep apnea (adult) (pediatric); E78.5 Hyperlipidemia, unspecified; G89.4 Chronic pain syndrome; I11.0 Hypertensive heart disease with heart failure; E11.51 Type 2 diabetes mellitus with diabetic peripheral angiopathy without gangrene; E87.5 Hyperkalemia; N40.0 Benign prostatic hyperplasia without lower urinary tract symptoms
CPT/HCPCS: 0241U; 36415; 71045; 71260; 80048; 80053; 80061; 82947; 83036; 83735; 84484; 85025; 85379; 85610; 85730; 86140; 86850; 86900; 86901; 93005; 93010; 93460; 94660; 94762; 96375; 96376; 97110; 97116; 97161; 97166; 97530; 97535; 99152; 99153; 99285-25; A9270; C1769; C1894; C8929; G0008; J1644; J2250; J2270; J3010; J3480; J7030; J7040; J7050; Q2038; Q9957; Q9967

== ENCOUNTER 2020-08-08 09:39 | Inpatient (IN) | payer OTHER, MEDICARE ==
[~2020-08-08] VITALS: Ht 190.5 cm; Wt 96.2 kg
[~2020-08-08 09:39] MED LIST changes: +Imdur60 MG PO; +LOSA50 PO; +MIRALAX17 GM PO; +TORSE20 PO
[2020-08-08 10:23] LABS: BASOPHILS ABSOLUTE AUTO 0.06 K/mm3 (0.00-0.23); BASOPHILS PERCENT AUTO 1 % (0-2); EOSINOPHILS ABSOLUTE AUTO 0.69 K/mm3 (0.00-0.68); EOSINOPHILS PERCENT AUTO 9 % (0-6); IMMATURE GRAN ABSOLUTE AUTO 0.04 K/mm3 (0.00-0.10); IMMATURE GRAN PERCENT AUTO 1 % (0-1); LYMPHOCYTES ABSOLUTE AUTO 1.56 K/mm3 (0.84-5.20); LYMPHOCYTES PERCENT AUTO 21 % (21-46); MONOCYTES ABSOLUTE AUTO 0.53 K/mm3 (0.16-1.47); MONOCYTES PERCENT AUTO 7 % (4-13); Mean Corpuscular HGB Conc 34.1 g/dL (31.5-36.5); Mean Corpuscular Volume 91 fL (80-100); Mean Platelet Volume 10.1 fL (9.1-12.4); NEUTROPHILS ABSOLUTE AUTO 4.56 K/mm3 (1.96-9.15); NEUTROPHILS PERCENT AUTO 61 % (41-73); Platelet Count 211 K/mm3 (150-400); RDW Coefficient Variation 13.5 % (11.7-14.2); RDW Standard Deviation 45.6 fL (35.1-46.3); Red Blood Cell Count 4.51 M/mm3 (4.30-5.90); White Blood Cell Count 7.44 K/mm3 (4.00-11.30)
[2020-08-08 11:00] LABS: Alanine Aminotransfer (ALT/SGP 30 U/L (12-78); Albumin, Blood 3.2 g/dL (3.4-5.0); Albumin/Globulin Ratio 0.9 (0.8-1.8); Alk Phos 109 U/L (50-136); Anion Gap 9 mmol/L (6-16); Aspartate Aminotrans (AST/SGOT 16 U/L (12-37); Bilirubin, Total 0.7 mg/dL (0.1-1.0); Blood Urea Nitrogen 26 mg/dL (8-24); Bun/Creatinine Ratio 40.3 (12.0-20.0); CO2, Blood 23 mmol/L (21-32); Calcium, Blood 8.3 mg/dL (8.5-10.1); Chloride, Blood 104 mmol/L (98-108); Creatinine, Blood 0.65 mg/dL (0.60-1.20); Globulin, Blood 3.5 g/dL (2.2-4.0); Glomerular Filtration Rate >60 (60-); Glucose, Blood 295 mg/dL (70-99); Potassium, Blood 3.7 mmol/L (3.5-5.5); Sodium, Blood 136 mmol/L (136-145); Total Protein, Blood 6.7 g/dL (6.4-8.2)
[2020-08-08 11:05] LABS: Troponin I 0.742 ng/mL (0.000-0.040)
[2020-08-08] MEDS ORDERED: CYMBALTA20 M2 PO (12:29)
[2020-08-08] MEDS ORDERED: CLOP75 PO (12:31)
[2020-08-08] MEDS ORDERED: SPIR25 PO (12:36)
--- NOTE | 2020-08-08 17:01 | NUR ---
ADMIT NOTE/TRANSFER ORDER RECEIVED REPORT FROM CARON ROBERTS IN ED. PT TO ROOM VIA BED AT 1404; PT TRANSFERED TO BED WITH SLIDER SHEET AND 4 PERSON ASSIST. PT ORIENTED TO ROOM AND CALL LIGHT. PT A&Ox4; CALM AND COOPERATIVE WITH CARE. PT STATES OVER THE LAST TWO WEEKS HE HAS BEEN WAKING UP UNABLE TO BREATH, WORSENED LAST NIGHT AND INCREASED CHEST PAIN AND SOB THIS MORNING. PT DENIES CHEST PAIN/PRESSURE AND SOB AT THIS TIME. PT DENIES PAIN, NAUSEA AND DIZZINESS. PT REPORTS NEUOPATHY TO BLE; STATES HIS DOCTORS HAVE NOT BEEN ABLE TO FIND A PULSE TO LLE; DOPPLER USED WITH NO PULSE FOUND. RLE DOPPLE USED AND PULSE FOUND. CAP REFILL >3; BLE MOTTLED; WHICH PT STATES IS NORMAL FOR HIM. VSS. NO OTHER ACUTE CHANGES NOTED. WILL CONTINUE TO MONITOR.
--- NOTE | 2020-08-08 21:39 | NUR ---
ASSUMED CARE OF PATIENT AT APPROXIMATELY 1905 FROM CRISTOBAL Harris RN. PATIENT ALERT AND ORIENTED X4. PATIENT REPORTED SOME CRAMPING IN HIS LEFT LEG THAT WAS MILD AND RELIEVED BY PUTTING LEGS OVER THE SIDE OF THE BED FOR A FEW MINUTES. PATIENT DENIES PAIN OTHERWISE, NAUSEA OR DIZZINESS. PATIENT IS A TWO ASSIST W/ FWW OUT OF BED. 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 DIURESING PATIENT; USES URINAL BEDSIDE; FLUID RESTICTION; PATIENT COMPLIANT OF RESTRICTION. SR/ST ON TELE; PATIENT REPORTS HE HAD A LIFE VEST ON BEFORE BEING ADMITTED AFTER HAVING A BIG HEART ATTACK IN JUN; HEART RATE WAS IN 150'S AT HOME; IMPROVED 90-100'S. OXYGEN SATURATION ABOVE 90% ON ROOM AIR. PATIENT CURRENTLY RESTING IN BED; CALL LIGHT IN REACH; BED IN LOWEST POSISTION; BED ALARM ON
[2020-08-09 05:08] LABS: BASOPHILS ABSOLUTE AUTO 0.07 K/mm3 (0.00-0.23); BASOPHILS PERCENT AUTO 1 % (0-2); EOSINOPHILS ABSOLUTE AUTO 0.79 K/mm3 (0.00-0.68); EOSINOPHILS PERCENT AUTO 10 % (0-6); Hematocrit 44.5 % (37.0-53.0); Hemoglobin 14.7 g/dL (13.5-17.5); IMMATURE GRAN ABSOLUTE AUTO 0.03 K/mm3 (0.00-0.10); IMMATURE GRAN PERCENT AUTO 0 % (0-1); LYMPHOCYTES ABSOLUTE AUTO 2.11 K/mm3 (0.84-5.20); LYMPHOCYTES PERCENT AUTO 26 % (21-46); MONOCYTES ABSOLUTE AUTO 0.52 K/mm3 (0.16-1.47); MONOCYTES PERCENT AUTO 7 % (4-13); Mean Corpuscular HGB 30.3 pg (26.0-34.0); Mean Corpuscular Volume 92 fL (80-100); Mean Platelet Volume 9.8 fL (9.1-12.4); NEUTROPHILS ABSOLUTE AUTO 4.46 K/mm3 (1.96-9.15); NEUTROPHILS PERCENT AUTO 56 % (41-73); Platelet Count 254 K/mm3 (150-400); RDW Coefficient Variation 13.6 % (11.7-14.2); RDW Standard Deviation 45.5 fL (35.1-46.3); Red Blood Cell Count 4.85 M/mm3 (4.30-5.90); White Blood Cell Count 7.98 K/mm3 (4.00-11.30)
[2020-08-09 05:32] LABS: Anion Gap 6 mmol/L (6-16); Blood Urea Nitrogen 21 mg/dL (8-24); Bun/Creatinine Ratio 34.6 (12.0-20.0); CO2, Blood 29 mmol/L (21-32); Calcium, Blood 8.5 mg/dL (8.5-10.1); Chloride, Blood 101 mmol/L (98-108); Creatinine, Blood 0.61 mg/dL (0.60-1.20); Glomerular Filtration Rate >60 (60-); Glucose, Blood 236 mg/dL (70-99); Magnesium, Blood 1.8 mg/dL (1.6-2.4); Potassium, Blood 4.2 mmol/L (3.5-5.5); Sodium, Blood 136 mmol/L (136-145)
--- NOTE | 2020-08-09 06:05 | NUR ---
PATIENT SLEPT ABOUT SIX HOURS; NO FURTHER COMPLAINTS OF LEG CRAMPS. VSS.
[2020-08-09 07:34] LABS: CHOL/HDL RATIO 4.4; Cholesterol 114 mg/dL (50-200); HDL Cholesterol 26 mg/dL (>39); LDL/HDL RATIO 2.5; Low Density Lipoprotein Chol 65 mg/dL (0-110); Triglycerides 113 mg/dL (30-160); Very Low Density Lipoprot Chol 22 mg/dL (6-32)
--- NOTE | 2020-08-09 12:48 | NUR ---
Spiritual care visit conducted. Patient speaks about his AIDS type disease, his current heart issues and the care plan going forward. Patient talks at length about his family and his Tenriism dio. We discuss how he manages his thoughts today knowing that his incurable disease will only grow worse through the years. Patient shares about how his granddaughter helped pull him out of a very dark place and how he focuses now on staying ahead of the deterioration process to try to remain as independent as possible. I reinforce helpful attitudes and practices and provide therapeutic listening, companionship and prayer. Patient responds well and shows signs of an elevated mood.
--- NOTE | 2020-08-09 15:13 | NUR ---
Echocardiogram using 0.5ml of Definity contrast performed by Sarah Chaparro under my supervision.
--- NOTE | 2020-08-09 18:11 | NUR ---
SHIFT SUMMARY PT A&Ox4; CALM AND COOPERATIVE WITH CARE. PT UP SBA IN ROOM WITH WALKER. RESTING IN BED FOR MAJOIRTY OF SHIFT. ABLE TO GET UP ON SIDE OF THE BED AND BACK IND OR WITH MINIMAL ASSISTANCE. PT DENIES CHEST PAIN, SOB, NAUSEA AND DIZZINESS. PT REPORTS INCREASED NEUROPATHY PAIN TO BLE, MEDICATED PER EMAR. BP SOFT, NOTIFIED DR BLOUNT; HELD AM CARDIAC MEDICATIONS. PT REMAINS SR T/O SHIFT, NO EVENTS REPORTS FROM TELE. VSS. NO OTHER ACUTE CHANGES NOTED DURING SHIFT. WILL CONTINUE TO MONITOR UNITL REPORT GIVEN TO ONCOMING RN.
[2020-08-09 18:38] LABS: International Normalized Ratio 1.09; Prothrombin Time Results 11.6 Sec (9.7-11.5)
--- NOTE | 2020-08-10 01:21 | NUR ---
ASSUMED CARE OF PATIENT AT APPROXIMATELY 1915 FROM CRISTOBAL Harris RN. PATIENT ALERT AND ORIENTED X4. PATIENT APPERS ANXIOUS DUE TO CLOT IN VENTRICLE. PATIENT REPORTS HIS NEUROPATHY IN HIS LEGS BOTHERS HIM OFF AND ON T/O THE DAY; REFUSED FUTHER INTERVENTIONS. PATIENT DENIES PAIN OTHERWISE, NAUSEA OR DIZZINESS. PATIENT IS A TWO ASSIST W/ FWW OUT OF BED. PATIENT HAS CHRONIC WEAKNESS HE REPORTS FROM INCLUSION BODY MYOCYTIS W/ CHRONIC COOL SKIN AND POOR PULSES PEDAL. PATIENT USES URINAL BEDSIDE; FLUID RESTICTION; PATIENT COMPLIANT OF FLUID RESTRICTION. SR/ST ON TELE; HEPARIN GTT STARTED PER ORDER AT START OF SHIFT. OXYGEN SATURATION ABOVE 90% ON ROOM AIR. PATIENT CURRENTLY RESTING IN BED; CALL LIGHT IN REACH; BED IN LOWEST POSISTION; BED ALARM ON
[2020-08-10 03:27] LABS: Hematocrit 42.3 % (37.0-53.0); Hemoglobin 14.5 g/dL (13.5-17.5); Mean Corpuscular HGB 31.1 pg (26.0-34.0); Mean Corpuscular HGB Conc 34.3 g/dL (31.5-36.5); Mean Corpuscular Volume 91 fL (80-100); Mean Platelet Volume 10.3 fL (9.1-12.4); Platelet Count 221 K/mm3 (150-400); RDW Coefficient Variation 13.5 % (11.7-14.2); RDW Standard Deviation 45.1 fL (35.1-46.3); Red Blood Cell Count 4.66 M/mm3 (4.30-5.90); White Blood Cell Count 6.97 K/mm3 (4.00-11.30)
[2020-08-10 03:43] LABS: International Normalized Ratio 1.08; Prothrombin Time Results 11.5 Sec (9.7-11.5)
[2020-08-10 03:46] LABS: Alanine Aminotransfer (ALT/SGP 28 U/L (12-78); Albumin, Blood 2.9 g/dL (3.4-5.0); Albumin/Globulin Ratio 0.9 (0.8-1.8); Alk Phos 107 U/L (50-136); Anion Gap 5 mmol/L (6-16); Aspartate Aminotrans (AST/SGOT 16 U/L (12-37); Bilirubin, Total 0.5 mg/dL (0.1-1.0); Blood Urea Nitrogen 25 mg/dL (8-24); Bun/Creatinine Ratio 35.2 (12.0-20.0); CO2, Blood 28 mmol/L (21-32); Calcium, Blood 8.3 mg/dL (8.5-10.1); Chloride, Blood 102 mmol/L (98-108); Creatinine, Blood 0.71 mg/dL (0.60-1.20); Globulin, Blood 3.2 g/dL (2.2-4.0); Glomerular Filtration Rate >60 (60-); Glucose, Blood 260 mg/dL (70-99); Magnesium, Blood 1.8 mg/dL (1.6-2.4); Potassium, Blood 4.5 mmol/L (3.5-5.5); Sodium, Blood 135 mmol/L (136-145); Total Protein, Blood 6.1 g/dL (6.4-8.2)
--- NOTE | 2020-08-10 06:00 | NUR ---
PATIENT SLEPT ABOUT SIX HOURS LAST NIGHT. VSS. NO CHANGES TO HEPARIN GTT.
--- NOTE | 2020-08-10 15:05 | NUR ---
Call from Dr. Collins for update on pt's blood pressures; states she will be putting orders in for Entresto to start now, next dose tomorrow morning.
--- NOTE | 2020-08-10 15:37 | NUR ---
Spiritual care visit conducted. Patient is sitting up in bed and alert. Patient tells me about his recent diagnosis and the plan going forward. He explains about the conversations he has had with his ex- and two of his daughters and how difficult it was. We also talk about the theological implications of disease and blood clots and where God is in it all. I normalize patient's struggle and provide pastoral intellectual property counsel and prayer. Patient responds well and shows signs of increased peace. I will continue to remain available to patient and family.
--- NOTE | 2020-08-10 17:41 | NUR ---
Pt reports that between 1644 and 1714 he suddenly felt dizzy, sweaty and like he was going to pass out while lying in the bed. He said that it went away about 15 minutes later but he did not report it at the time. Said that he sat up on side of bed, which did not make it any worse nor any better, and he lay back down until dinner arrived, at which time he felt better. He is at this time sitting on side of bed, eating and says that he feels fine. Will review telemetry for any changes/events during that time period. Urged pt to please call staff when this happens. He reports that it also happened once this morning.
[2020-08-11 04:13] LABS: BASOPHILS ABSOLUTE AUTO 0.05 K/mm3 (0.00-0.23); BASOPHILS PERCENT AUTO 1 % (0-2); EOSINOPHILS ABSOLUTE AUTO 0.57 K/mm3 (0.00-0.68); EOSINOPHILS PERCENT AUTO 8 % (0-6); Hematocrit 43.6 % (37.0-53.0); Hemoglobin 14.8 g/dL (13.5-17.5); IMMATURE GRAN ABSOLUTE AUTO 0.02 K/mm3 (0.00-0.10); IMMATURE GRAN PERCENT AUTO 0 % (0-1); LYMPHOCYTES ABSOLUTE AUTO 2.45 K/mm3 (0.84-5.20); LYMPHOCYTES PERCENT AUTO 32 % (21-46); MONOCYTES ABSOLUTE AUTO 0.53 K/mm3 (0.16-1.47); MONOCYTES PERCENT AUTO 7 % (4-13); Mean Corpuscular HGB 30.8 pg (26.0-34.0); Mean Corpuscular HGB Conc 33.9 g/dL (31.5-36.5); Mean Corpuscular Volume 91 fL (80-100); Mean Platelet Volume 9.8 fL (9.1-12.4); NEUTROPHILS ABSOLUTE AUTO 3.96 K/mm3 (1.96-9.15); NEUTROPHILS PERCENT AUTO 52 % (41-73); Platelet Count 197 K/mm3 (150-400); RDW Coefficient Variation 13.6 % (11.7-14.2); RDW Standard Deviation 45.8 fL (35.1-46.3); White Blood Cell Count 7.58 K/mm3 (4.00-11.30)
[2020-08-11 04:29] LABS: International Normalized Ratio 0.99; Prothrombin Time Results 10.6 Sec (9.7-11.5)
[2020-08-11 04:38] LABS: Alanine Aminotransfer (ALT/SGP 26 U/L (12-78); Albumin, Blood 3.1 g/dL (3.4-5.0); Albumin/Globulin Ratio 0.9 (0.8-1.8); Alk Phos 102 U/L (50-136); Anion Gap 6 mmol/L (6-16); Aspartate Aminotrans (AST/SGOT 14 U/L (12-37); Bilirubin, Total 0.7 mg/dL (0.1-1.0); Blood Urea Nitrogen 19 mg/dL (8-24); Bun/Creatinine Ratio 31.8 (12.0-20.0); CO2, Blood 23 mmol/L (21-32); Calcium, Blood 8.7 mg/dL (8.5-10.1); Chloride, Blood 106 mmol/L (98-108); Globulin, Blood 3.3 g/dL (2.2-4.0); Glomerular Filtration Rate >60 (60-); Glucose, Blood 224 mg/dL (70-99); Potassium, Blood 4.7 mmol/L (3.5-5.5); Sodium, Blood 135 mmol/L (136-145); Total Protein, Blood 6.4 g/dL (6.4-8.2)
--- NOTE | 2020-08-11 05:18 | NUR ---
SHIFT SUMMARY PT RESTED WELL THROUGH THE NIGHT. ALERT AND ORIENTED - ABLE TO MAKE NEEDS KNOWN. COOPERATIVE [facility] PLAN OF CARE. TELE - NSR. SATS >90% ON ROOM AIR. NO C/O PAIN. VSS. VOIDING TO URINAL AT BEDSDIE. NO BM. STAND BY ASSIST WITH AMBULATION. HEP GTT RUNNING AT SAME RATE - NO ADJUSTMENTS NEEDED. NO SIGNS OF BLEEDING. CALL LIGHT WITHIN REACH, BED IN LOWEST POSITION. [facility]
--- NOTE | 2020-08-11 11:53 | NUR ---
1000 Asked pt if he would like a shower/bath today. STates that he wants to nap this morning, and would like to get washed up at 11am 11:30 Pt declined hygiene care until "after lunch".
--- NOTE | 2020-08-11 13:33 | NUR ---
UP to shower with use of walker and minimal assistance from staff. Tolerated very well. States he feels much better after the shower. Oral care done independently by pt after back in bed.
--- NOTE | 2020-08-11 18:05 | NUR ---
summary Mau says that he slept much better last night, but he has also taken a few naps today. Appetite is good, voiding using the urinal. States that he had a bowel movement yesterday evening. He was able to walk into the bathroom today for a shower, which he tolerated well. Using the walker and elevated chairs/bed for his moblity assistance in walking/standing. Noted pulses were palpable and confirmed with doppler in his feet today, an improvement from yesterday. Feet are warm to touch, pink, with brisk capilary refill. Pt states that a few days ago they were cold, painful, and without discernable pulses, even with aid of doppler. He states that his feet are no longer painful. Cyanosis and mottling noted of feet while he was in the shower, but improved with elevation after the activity. Lung sounds are clear, no cough. Sinus rhythm-sinus tachycardia 90s-110 bpm at rest, and sinus tachycardia up to 130 bpm with activity of shower today, improved with rest. NO supplemental oxygen needs.
--- NOTE | 2020-08-11 20:51 | NUR ---
ASSUMED CARE PT IS ALERT AND ORIENTED. VITAL SIGNS ARE STABLE WITH SATURATIONS OF 96% ON ROOM AIR. DENIES CP OR SOB. USING URINAL AT THE BESIDE. CALL LIGHT IS WITHIN REACH. WILL CONTINUE TO MONITOR.
[2020-08-12 04:06] LABS: BASOPHILS ABSOLUTE AUTO 0.07 K/mm3 (0.00-0.23); BASOPHILS PERCENT AUTO 1 % (0-2); EOSINOPHILS ABSOLUTE AUTO 0.53 K/mm3 (0.00-0.68); EOSINOPHILS PERCENT AUTO 8 % (0-6); Hematocrit 44.7 % (37.0-53.0); Hemoglobin 15.2 g/dL (13.5-17.5); IMMATURE GRAN ABSOLUTE AUTO 0.02 K/mm3 (0.00-0.10); IMMATURE GRAN PERCENT AUTO 0 % (0-1); LYMPHOCYTES ABSOLUTE AUTO 2.17 K/mm3 (0.84-5.20); LYMPHOCYTES PERCENT AUTO 31 % (21-46); MONOCYTES ABSOLUTE AUTO 0.52 K/mm3 (0.16-1.47); MONOCYTES PERCENT AUTO 8 % (4-13); Mean Corpuscular HGB 31.2 pg (26.0-34.0); Mean Corpuscular Volume 92 fL (80-100); Mean Platelet Volume 9.9 fL (9.1-12.4); NEUTROPHILS ABSOLUTE AUTO 3.65 K/mm3 (1.96-9.15); NEUTROPHILS PERCENT AUTO 52 % (41-73); Platelet Count 207 K/mm3 (150-400); RDW Coefficient Variation 13.5 % (11.7-14.2); RDW Standard Deviation 45.7 fL (35.1-46.3); Red Blood Cell Count 4.87 M/mm3 (4.30-5.90); White Blood Cell Count 6.96 K/mm3 (4.00-11.30)
[2020-08-12 04:21] LABS: International Normalized Ratio 1.07; Prothrombin Time Results 11.4 Sec (9.7-11.5)
[2020-08-12 04:23] LABS: Anion Gap 7 mmol/L (6-16); Blood Urea Nitrogen 21 mg/dL (8-24); Bun/Creatinine Ratio 35.1 (12.0-20.0); CO2, Blood 24 mmol/L (21-32); Calcium, Blood 8.9 mg/dL (8.5-10.1); Chloride, Blood 103 mmol/L (98-108); Glomerular Filtration Rate >60 (60-); Glucose, Blood 268 mg/dL (70-99); Potassium, Blood 4.5 mmol/L (3.5-5.5); Sodium, Blood 134 mmol/L (136-145)
--- NOTE | 2020-08-12 06:21 | NUR ---
SHIFT SUMMARY PT IS ALERT AND ORIENTED. DENIES CHEST PAIN OR SOB. VITALS HAVE REMAINED STABLE AND THER HAVE BEEN NO ACUTE CHANGES. PT ON ROOM AIR WITH SATS OF >92%. PT ON FLUID RESTRICTIONS OF 500 ML PER [employer] SUPERVISOR. URINATING IN URINAL WHILE DANGKING ON THE SIDE OF THE BED. HEPARIN INFUSING.
--- NOTE | 2020-08-12 18:40 | NUR ---
SHIFT SUMMARY PT HAS BEEN INDEPENDENTLY USING THE URINAL AT THE BEDSIDE DURING THE DAY. PT HAS BEEN COMPLETING HIS PHYSICAL THERAPY EXERCISES WHILE RESTING IN BED. PT IS ON RA AND VS STABLE. PT CONTINUES TO BE ON THE HEPARIN DRIP. PT DENIES PAIN AND DISCOMFORT AT THIS TIME. PT REQUIRED SMALL AMOUNTS OF INSULIN COVERAGE THROUGHOUT THE DAY. PT IS RESTING IN BED WHILE WATCHING TV AT THIS TIME
--- NOTE | 2020-08-12 19:24 | NUR ---
ASSUMED CARE PT IS ALERT AND ORIENTED. DENIES PAIN; CHEST PAIN; SOB. VITALS ARE STABLE; SATS ARE >92% ON ROOM AIR; HEART RATE IS SINUS TACH. USES URINAL WHILE DANGLING ON BEDSIDE. USES CALL LIGHT APPROPRIATELY. CALL LIGHT IS WITHIN REACH.
--- NOTE | 2020-08-13 04:27 | NUR ---
SHIFT SUMMARY PT IS ALERT AND ORIENTED. VITALS ARE STABLE WITH NO ACUTE CHANGES; ROOM AIR WITH SATS OF >92%. DENIES CHEST PAIN OR SOB. PT HAS USED CALL LIGHT APPROPRIETLY AND USING URINAL AT BEDSIDE. CALL LIGHT WITHIN REACH.
[2020-08-13 04:43] LABS: International Normalized Ratio 1.48; Prothrombin Time Results 15.5 Sec (9.7-11.5)
[2020-08-13 04:47] LABS: Albumin, Blood 3.3 g/dL (3.4-5.0); Anion Gap 5 mmol/L (6-16); Blood Urea Nitrogen 22 mg/dL (8-24); Bun/Creatinine Ratio 33.4 (12.0-20.0); CO2, Blood 23 mmol/L (21-32); Calcium, Blood 9.2 mg/dL (8.5-10.1); Chloride, Blood 103 mmol/L (98-108); Creatinine, Blood 0.66 mg/dL (0.60-1.20); Glomerular Filtration Rate >60 (60-); Glucose, Blood 238 mg/dL (70-99); Phosphorus, Blood 3.3 mg/dL (2.5-4.9); Potassium, Blood 4.8 mmol/L (3.5-5.5); Sodium, Blood 131 mmol/L (136-145)
--- NOTE | 2020-08-13 12:07 | NUR ---
TRANSFER TO MEDICAL FLOOR, RM 358, CODE STATUS CLARIFICATION SEVERAL DOCTOR'S NOTES STATE THAT THE PT IS A FULL CODE; PT CLARIFIED THAT OF Friday08/08/20 HE IS A DNR; THE ORDER REFLECTS THIS CHOICE. PT WAS TRANSFERRED TO MEDICAL FLOOR LEAVING VIA CART AT APPROXIMATELY 1145; REPORT GIVEN TO CARON Garcia VS STABLE; PT ON RA, SLIGHT HR ELEVATION WITH ST 100-110s. PT USING URINAL INDEPENDENTLY AT THE BEDSIDE. HEPARIN DRIP CONTINUED UPON TRANSFER AT 16U/K/HR.
--- NOTE | 2020-08-13 13:33 | NUR ---
ARRIVES FROM PCU AROUND 1150. ABLE TO STAND AND PIVOT TO BED. TELE ON AND PER PCU TECH SR AT 106. HX; D.M, HTN, HUSSAIN, CHF, AND INCLUSION BODY MYOSITIS. HEPARIN GOING AT 30.4 ML/HR IN LEFT F.A IV. FLUID RESTRICTIONS OF 1500ML DAYS AND 500 ML NITES. URINAL GIVEN FOR STRICT I&O. NO OPEN WOUNDS. LUNGS DIM T/O. UNLABORED RESPIRATIONS. SPEAKS IN COMPLETE SENTENCES. ORIENTED TO ROOM. DENIES ANY PAIN. WCTM
--- NOTE | 2020-08-13 15:50 | NUR ---
pt pleasant getting settled in his room. Will have Dayron pratt fillout apolst with him.
--- NOTE | 2020-08-13 17:50 | NUR ---
ALERT. ORIENTED. PER PCU TECH ST AT 102. DENIES ANY DISCOMFORT. UNLABORED RESPIRATIONS. HEPARIN INFUSING. WCTM
[2020-08-14 05:00] LABS: Hematocrit 54.2 % (37.0-53.0); Hemoglobin 17.7 g/dL (13.5-17.5); Mean Corpuscular HGB 30.3 pg (26.0-34.0); Mean Corpuscular HGB Conc 32.7 g/dL (31.5-36.5); Mean Corpuscular Volume 93 fL (80-100); Mean Platelet Volume 10.4 fL (9.1-12.4); Platelet Count 205 K/mm3 (150-400); RDW Coefficient Variation 13.5 % (11.7-14.2); RDW Standard Deviation 46.2 fL (35.1-46.3); Red Blood Cell Count 5.84 M/mm3 (4.30-5.90); White Blood Cell Count 9.26 K/mm3 (4.00-11.30)
[2020-08-14 05:13] LABS: International Normalized Ratio 1.95; Prothrombin Time Results 20.1 Sec (9.7-11.5)
[2020-08-14 05:29] LABS: Albumin, Blood 3.6 g/dL (3.4-5.0); Anion Gap 10 mmol/L (6-16); Blood Urea Nitrogen 30 mg/dL (8-24); Bun/Creatinine Ratio 36.8 (12.0-20.0); CO2, Blood 17 mmol/L (21-32); Calcium, Blood 9.1 mg/dL (8.5-10.1); Chloride, Blood 103 mmol/L (98-108); Creatinine, Blood 0.82 mg/dL (0.60-1.20); Glomerular Filtration Rate >60 (60-); Glucose, Blood 302 mg/dL (70-99); Phosphorus, Blood 3.8 mg/dL (2.5-4.9); Potassium, Blood 5.3 mmol/L (3.5-5.5); Sodium, Blood 130 mmol/L (136-145)
--- NOTE | 2020-08-14 05:58 | NUR ---
SHIFT SUMMARY PATIENT ALERT AND ORIENTED. HAD NO COMPLAINTS OF PAIN OR SHORTNESS OF BREATH. SLEPT FAIRLY WELL OVERNIGHT. NO ACUTE ISSUES NOTED. IV PATENT AND INFUSING. BED IN LOWEST POSITION WITH WHEELS LOCKED AND ALARM ON. CALL LIGHT WITHIN REACH. REPORT GIVEN TO ONCOMING RN.
--- NOTE | 2020-08-14 13:03 | NUR ---
POLST eduction/Spiritual care visit conducted. Patient tells me about the weekend, about the medical direction being taken to deal with blood clots and about his thoughts about code status while he has the clots. We fill out a POLST together, going through the sections and then patient signs it. I leave POLST in the front of patient's chart for his doctor to sign. Patient also talks about how things can get dark at times but he is thankful for friends and family that pull him through and the strength he gains from his prayers. I listen empathically and provide companionship and prayer. Patient responds well and shows signs of being encouraged in his dio.
--- NOTE | 2020-08-14 17:37 | NUR ---
SHIFT SUMMARY YESSI DENIED PAIN THIS SHIFT. HELD TO HIS FLUID RESTRICTION. WORKED WITH PT, UP WITH AO1 AND WALKER. 1 LIQUID BM THIS SHIFT (HAD TWO OVERNIGHT PER PT ALSO). HEP DRIP ADJUSTED PER PHARMACY. TACHYCARDIC, ST @ 119. POSSIBLE HOME WITH HH TOMORROW. CALL LIGHT IN REACH, [facility]
[2020-08-15 04:56] LABS: Hematocrit 49.9 % (37.0-53.0); Hemoglobin 16.6 g/dL (13.5-17.5); Mean Corpuscular HGB 30.6 pg (26.0-34.0); Mean Corpuscular HGB Conc 33.3 g/dL (31.5-36.5); Mean Corpuscular Volume 92 fL (80-100); Mean Platelet Volume 10.9 fL (9.1-12.4); Platelet Count 171 K/mm3 (150-400); RDW Coefficient Variation 13.6 % (11.7-14.2); RDW Standard Deviation 45.7 fL (35.1-46.3); Red Blood Cell Count 5.43 M/mm3 (4.30-5.90); White Blood Cell Count 9.51 K/mm3 (4.00-11.30)
[2020-08-15 05:09] LABS: International Normalized Ratio 2.42; Prothrombin Time Results 24.6 Sec (9.7-11.5)
[2020-08-15 05:14] LABS: Albumin, Blood 3.4 g/dL (3.4-5.0); Anion Gap 10 mmol/L (6-16); Blood Urea Nitrogen 38 mg/dL (8-24); Bun/Creatinine Ratio 41.9 (12.0-20.0); CO2, Blood 19 mmol/L (21-32); Calcium, Blood 8.9 mg/dL (8.5-10.1); Chloride, Blood 102 mmol/L (98-108); Creatinine, Blood 0.91 mg/dL (0.60-1.20); Glomerular Filtration Rate >60 (60-); Glucose, Blood 299 mg/dL (70-99); Phosphorus, Blood 3.6 mg/dL (2.5-4.9); Potassium, Blood 4.7 mmol/L (3.5-5.5); Sodium, Blood 131 mmol/L (136-145)
--- NOTE | 2020-08-15 05:16 | NUR ---
SHIFT SUMMARY ASSUMED CARE OF PT AT 1900. PT IS A/OX4. HEART SOUNDS IRREGULAR, LUNG SOUNDS HAVE FINE CRACKLES AT THE BASES. PT IS A 1P SBA WITH WALKER TO BATHROOM. PT WAS CONTIENT MOST OF THE NIGHT WITH ONE EPISODE OF INCONTINCE. NO ACUTE EVENTS DURING THE NIGHT. PT SLEPT MOST OF THE NIGHT. CALL LIGHT IN REACH, BED IN LOWEST POSITION.
--- NOTE | 2020-08-15 10:57 | NUR ---
TRANSFER RAPID RESPONSE CALLED, PT FOUND UNRESPONSIVE BY DR ABBASI, PT TRANSFERRED TO ICU 10 AND REPORT GIVEN TO LIZBET REARDON
[2020-08-15 11:40] LABS: Source, Urine Catheter
--- NOTE | 2020-08-15 11:54 | NUR ---
Patient arrived post rapid response from room 358 to ICU 10. He was responsive and able to knod yes and no to questions. His eye shifted to right gaze and up slightly, pupils are equal and reactive . He uses right upper extremity with some fine motor skills and LE as well. He is flaccid to right upper and lower extremities. He seemed to be coughing alot from tongue slipping back and placed 100mm OPA and he is tolerating well. He has alot of oral secretions and have oral suctioned through OPA. Placed 16Fr temp horta and has moderate amounts of clear yellow urine output. He has 20 ga Iv to LLFA flushed and SL'd. I placed 18/10 powerGlide to MICK for better access. patient resting on RA and sats 97%. Gave 2.5 mg Metoprolol and HR 121 and only came down to 112.
[2020-08-15 12:04] LABS: Bilirubin, Urine Neg (Neg); Blood, Urine Neg (Neg); Glucose Qualitative, Urine 3+ (Neg); Ketones, Urine Neg (Neg); Leukocyte Esterase, Urine Neg (Neg); Nitrite, Urine Neg (Neg); Protein, Urine Neg (Neg); Urobilinogen, Urine NORM (Normal)
[2020-08-15 12:33] LABS: Appearance, Urine Clear (Clear); Color, Urine Yellow (P-Yellow)
--- NOTE | 2020-08-15 13:08 | NUR ---
Spiritual care visit conducted. Patient is having a power glide placed and I encourage patient and provide a calming presence. I later discuss with Palliative Care RN Norah Jaquez patient's POLST in regards to his current treatment. I then provide prayer with family as they decide to go forward with a transfer to a hospital in [place].
--- NOTE | 2020-08-15 14:12 | NUR ---
Rapid resonse called on patient. For neurological changes. PT sent to icu and plan reviewed of care including his new polst that is dnr comfort only. pt is reponsive family at bedside. Asfer much discussion with physiciand family pt agreed to try intervention at [facility]. spoke with daughter and they were struggling with decion due to the fact he has had great decline and and is suffering. pt agreed to try procedure paln is to see how he responds and if he is still very impaired after they will switch to hospice care.
--- NOTE | 2020-08-15 14:38 | NUR ---
Patient went for head and neck CTA with contrast and after read and pushed to [facility] patient being transfered to their label printer. All Family was at bedside and followed to aleshia pad, Frequent OPA suctioning prior to transfer, he remains a DNR. No changes in neuro, remained flaccid to left side and continued fine motor on right. He was transferred via [facility]. Gave report to janusz REARDON and called label printer and gave reort to abbey REARDON.
--- NOTE | 2020-08-15 15:43 | NUR ---
Spiritual care visit conducted. Patient is very tearful as he talks about his and son having to watch him deteriorate and and about wondering how to say "good bye" to them. Patient also is second guessing whether or not he should go through any kind or treatment that may prolong his life. I normalize patient's struggle, and provide emotional support, pastoral family service counselor and prayer. Patient responds well, shows signs of increased hope and voices gratitude for the time and care form the spiritual care department.
== END 2020-08-15 13:36 | disposition short-term general hospital (02) | DRG 291 ==
LOC: ER 09:39 → PCU 12:26 → MEDS 08-13 11:56 → ICUW 08-15 10:45
PROVIDERS: Emergency Medicine; Internal Medicine; Internal Medicine Cardiovascular Disease; Nurse Practitioner Acute Care; Pharmacist; ADMIT Internal Medicine
DX: I11.0 Hypertensive heart disease with heart failure (principal); I63.311 Cerebral infarction due to thrombosis of right middle cerebral artery; I47.2 Ventricular tachycardia; G81.94 Hemiplegia, unspecified affecting left nondominant side; F32.9 Major depressive disorder, single episode, unspecified; N40.0 Benign prostatic hyperplasia without lower urinary tract symptoms; Z66 Do not resuscitate; H35.30 Unspecified macular degeneration; I42.8 Other cardiomyopathies; I25.10 Atherosclerotic heart disease of native coronary artery without angina pectoris; E78.5 Hyperlipidemia, unspecified; E11.51 Type 2 diabetes mellitus with diabetic peripheral angiopathy without gangrene; I27.20 Pulmonary hypertension, unspecified; G47.33 Obstructive sleep apnea (adult) (pediatric); E66.9 Obesity, unspecified; Z60.2 Problems related to living alone; E87.6 Hypokalemia; R29.810 Facial weakness; E83.42 Hypomagnesemia; I51.3 Intracardiac thrombosis, not elsewhere classified; I50.43 Acute on chronic combined systolic (congestive) and diastolic (congestive) heart failure; E11.42 Type 2 diabetes mellitus with diabetic polyneuropathy; T50.2X5A Adverse effect of carbonic-anhydrase inhibitors, benzothiadiazides and other diuretics, initial encounter; Z79.84 Long term (current) use of oral hypoglycemic drugs; Z98.890 Other specified postprocedural states; Z88.0 Allergy status to penicillin; Z91.038 Other insect allergy status; Z79.899 Other long term (current) drug therapy; Z79.01 Long term (current) use of anticoagulants; I25.2 Old myocardial infarction; Z87.891 Personal history of nicotine dependence
CPT/HCPCS: 36415; 70450; 70496; 70498; 71046; 76705; 80048; 80053; 80061; 80069; 81003; 82947; 83036; 83735; 83880; 84443; 84484; 85025; 85027; 85610; 85730; 93005; 93010; 96374; 97110; 97116; 97162; 97530; 99285-25; A9270; C1751; C8929; J1644; J1940; J3475; Q9967